=== PATIENT | female | born 1990 | race Caucasian/White ===

== ENCOUNTER 2019-05-18 14:52 | Emergency (ER) | payer SELFPAY ==
[2019-05-18] MEDS ORDERED: Ketorolac Tromethamine 30 MG/ML VIAL ONE (15:22)
--- NOTE | 2019-05-18 15:36 | RAD ---
Sacrum/coccyx 3 views HISTORY: Fall. Injury. FINDINGS: Sacral alae and sacroiliac are intact. No aggressive osseous abnormalities. No displaced fr actures. IMPRESSION: No significant abnormalities are demonstrated.
== END 2019-05-18 15:57 | disposition home or self-care (01) ==
LOC: ERS 14:52
DX: M53.3 Sacrococcygeal disorders, not elsewhere classified (principal)
CPT/HCPCS: 72220; 96372; J1885